=== PATIENT | female | born 1935 | race Caucasian/White ===

== ENCOUNTER → 2018-05-31 | Outpatient (CLI) | payer OTHER ==
[~2018-05-31] MED LIST: CALCIUM PO; CARDURA2 MG; CLA1000 MG PO; CO Q-10100 MG PO; DICLOFENAC SODI75 M1; FISH OIL 1,0001 EAC5 PO; FUROSEMIDE 40 M40 M1 PO; GARLIC OIL1 EACH PO; I-CAPS AREDS S1 EACH PO; LECITHIN PO; LEVOTHYROXINE PO; LISINOPRIL-HCT1 EAC1 PO; LOVASTAT10; LOVENOX SUBQ; MULTIVITAMINS PO; NEURONTIN600 MG; NORCO 5-325 TA1 EACH PO; NORCO 7.5-3251 EACH PO; PERCOCET 5-3251 EACH PO; STOOL SOFTENER1 EAC2 PO; SYNTHROID75 MCG PO; TOPROL XL25 MG PO; VITAMIN C PO; VITAMINC500 PO; ZANTAC 150MG T150 M1
== END ==
LOC: M.RAD 12:26
DX: I11.9 Hypertensive heart disease without heart failure (principal); I70.0 Atherosclerosis of aorta

== ENCOUNTER → 2018-11-29 | Outpatient (CLI) | payer OTHER | LOC: M.RAD 11:02 | DX: I26.99 Other pulmonary embolism without acute cor pulmonale (principal); I51.7 Cardiomegaly; R91.8 Other nonspecific abnormal finding of lung field ==

== ENCOUNTER → 2018-12-13 | Outpatient (CLI) | payer OTHER | LOC: M.RAD 11:43 | DX: Z01.89 Encounter for other specified special examinations (principal); I51.7 Cardiomegaly ==

== ENCOUNTER → 2019-02-04 | Outpatient (CLI) | payer OTHER | LOC: M.RAD 10:51 | DX: R13.12 Dysphagia, oropharyngeal phase (principal) ==

== ENCOUNTER → 2019-05-02 | Outpatient (CLI) | payer MEDICARE | LOC: M.RAD 16:15 | DX: R05 Cough (principal); I51.7 Cardiomegaly; M47.814 Spondylosis without myelopathy or radiculopathy, thoracic region ==

== ENCOUNTER 2019-08-07 14:32 | Inpatient (IN) | payer MEDICARE ==
[~2019-08-07] VITALS: Ht 160 cm; Wt 109.5 kg
[~2019-08-07 14:32] MED LIST changes: -CARDURA2 MG; +CARDURA2 MG PO; -GARLIC OIL1 EACH PO; +GARLIC OIL1000 MG PO; -NEURONTIN600 MG; +NEURONTIN600 MG PO
[2019-08-07 14:38] VITALS: BP 171/87
[2019-08-07] MEDS ORDERED: FAMOTIDINE 20 M20 MG PO (14:45)
[2019-08-07] MEDS ORDERED: LIPITOR40 MG PO (14:46)
[2019-08-07] MEDS ORDERED: METFORMIN HCL500 M3 PO ×2 (14:48)
[2019-08-07] MEDS ORDERED: ASA81BEC PO (14:48)
[2019-08-07] MEDS ORDERED: HYDROCHLOROTHIA25 M2 PO (14:50)
[2019-08-07] MEDS ORDERED: MICARDIS 20MG T20 M1 PO (14:50)
[2019-08-07] MEDS ORDERED: VITAMIN C1000 MG PO (14:52)
[2019-08-07] MEDS ORDERED: TURMERIC500 M2 PO (14:52)
[2019-08-07 15:08] LABS: ABSOLUTE EOSINOPHILS 0.4 thou/uL (0.0-0.7); ABSOLUTE LYMPHOCYTES 1.6 thou/uL (0.8-5.3); ABSOLUTE MONOCYTES 0.6 thou/uL (0.0-1.2); ABSOLUTE NEUTROPHILS 4.3 thou/uL (1.6-8.1); BASOPHILS 0.7 %; EOSINOPHILS 5.7 %; HEMATOCRIT 36.6 % (37.0-47.0); HEMOGLOBIN 12.6 gm/dL (12.0-15.0); LYMPHOCYTES 23.3 %; MCH 33.8 pg (26.0-34.0); MCHC 34.3 g/dL (28.0-37.0); MCV 98.6 fL (80.0-100.0); MONOCYTES 8.4 %; MPV 8.5 fl. (7.2-11.1); NUCLEATED RBCS 0 /100WBC; PLATELET COUNT* 193 thou/uL (150-400); POLYS 61.9 %; RBC 3.72 mil/uL (4.20-5.00); RDW-CV 13.2 % (10.5-14.5)
[2019-08-07 15:09] LABS: BE 4.5 mmol/L (-2 to +3); pH 7.378 (7.340-7.450)
[2019-08-07 15:12] LABS: PCO2 53.5 mmHg (35.0-45.0)
[2019-08-07 15:16] LABS: CALCIUM 9.1 mg/dL (8.5-10.1); CREATININE 1.2 mg/dL (0.6-1.3); POTASSIUM 4.8 mmol/L (3.5-5.1)
[2019-08-07 15:20] LABS: APTT 26.3 Seconds (25.0-31.3); PROTIME 10.4 Seconds (9.20-11.50)
[2019-08-07 15:27] LABS: ALBUMIN 3.3 g/dL (3.4-5.0); TOTAL BILIRUBIN 0.2 mg/dL (<0.1-1.0); TOTAL PROTEIN 8.2 g/dL (6.4-8.2)
[2019-08-07 17:11] VITALS: BP 179/86
[2019-08-07 20:30] VITALS: BP 179/88
[2019-08-07 23:30] VITALS: BP 143/76
[2019-08-08 04:16] VITALS: BP 109/60
[2019-08-08 05:17] LABS: ABSOLUTE BASOPHILS 0.1 thou/uL (0.0-0.2); ABSOLUTE LYMPHOCYTES 1.1 thou/uL (0.8-5.3); ABSOLUTE MONOCYTES 0.3 thou/uL (0.0-1.2); BASOPHILS 1.2 %; EOSINOPHILS 0.1 %; HEMATOCRIT 37.6 % (37.0-47.0); HEMOGLOBIN 12.7 gm/dL (12.0-15.0); LYMPHOCYTES 11.7 %; MCH 33.1 pg (26.0-34.0); MCHC 33.6 g/dL (28.0-37.0); MCV 98.5 fL (80.0-100.0); MONOCYTES 3.4 %; MPV 9.4 fl. (7.2-11.1); NUCLEATED RBCS 0 /100WBC; PLATELET COUNT* 214 thou/uL (150-400); POLYS 83.6 %; RBC 3.82 mil/uL (4.20-5.00); WBC 9.6 thou/uL (4.0-11.0)
[2019-08-08 05:27] LABS: CALCIUM 9.1 mg/dL (8.5-10.1); CREATININE 1.3 mg/dL (0.6-1.3); POTASSIUM 4.4 mmol/L (3.5-5.1)
--- NOTE | 2019-08-08 08:26 | EKG ---
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: TDS : 1935 Requested By: Francisco Mar Order Number: [id number] MD: Diogenes Green Measurements Intervals [place] Rate: 85 P: -12 [place]: 170 QRS: -44 QRSD: 97 T: 14 QT: 399 QTc: 475 Interpretive Statements Sinus rhythm Left anterior fascicular block low voltage, precordial leads Possible anteroseptal infarct, old Compared to ECG 01/15/2012 07:46:21 Low QRS voltage now present Myocardial infarct finding still present Electronically Signed On 08-08-2019 8:24:21 CDT by Diogenes Green [email or web address] <ELECTRONICALLY SIGNED> By: Diogenes Green MD, [facility] 08/08/19 0824 1509 1509 Diogenes Green MD, [facility] /EPI
[2019-08-08 08:30] VITALS: BP 120/57
--- NOTE | 2019-08-08 14:21 | 2DMMODE ---
[place] [address] 2 D/M-MODE ECHOCARDIOGRAM Name: JULI MORGAN Angela Room: [address] IN .#: [id number] Admission: 08/07/19 Attend Phys: Seth Barron, Discharge: Date of : 37 Date of Service: 08/08/19 1418 Report #: [id number] THIS REPORT FOR: cc: Carol Goodman MD, Katrina MD Liston, Michael J. MD [facility] ~ APPROVED REPORT Study performed: 08/08/2019 12:03:07 EXAM: Comprehensive 2D, Doppler, and color-flow Echocardiogram Patient Location: In-Patient BSA: 2.04 HR: 85 bpm BP: 109/60 mmHg Other Information Study Quality: Technically Limited Technically limited study due to body habitus, inability to position patient. Indications Congestive Heart Failure Dyspnea 2D Dimensions IVSd: 12.05 (7-11mm) LVOT Diam: 18.71 (18-24mm) LVDd: 31.68 mm PWd: 10.31 (7-11mm) Ascending Ao: 41.47 (22-36mm) LVDs: 21.48 (25-40mm) Aortic Root: 30.73 mm Volumes Left Atrial Volume (Systole) LA ESV Index: 26.50 mL/m2 Aortic Valve AoV Peak Faheem.: 1.64 m/s AO Peak Gr.: 10.73 mmHg LVOT Max P.82 mmHg AO Mean Gr.: 5.65 mmHg LVOT Mean P.57 mmHg LVOT Max V: 0.84 m/s AO V2 VTI: 26.72 cm LVOT Mean V: 0.58 m/s ANUEL (VTI): 1.65 cm2 LVOT V1 VTI: 16.01 [place] [address] 2 D/M-MODE ECHOCARDIOGRAM Name: JULI MORGAN Room: [address] IN [facility]#: [id number] Admission: 08/07/19 Attend Phys: Seth Barron, Discharge: Date of : 37 Date of Service: 08/08/19 1418 Report #: [id number] Mitral Valve E/A Ratio: 0.55 MV Decel. Time: 234.13 ms MV E Max Faheem.: 0.54 m/s MV PHT: 67.90 ms MVA (PHT): 3.24 cm2 TDI E/Lateral E': 7.71 E/Medial E': 4.50 Medial E' Faheem.: 0.12 m/s Lateral E' Faheem.: 0.07 m/s Pulmonary Valve PV Peak Faheem.: 1.06 m/s PV Peak Gr.: 4.48 mmHg Tricuspid Valve RAP Estimate: 5.00 mmHg TR Peak Gr.: 50.95 mmHg RVSP: 55.95 mmHg PA Pressure: 55.95 mmHg Left Ventricle The left ventricle is normal size. There is normal LV segmental wall motion. There is normal left ventricular wall thickness. Left ventricular systolic function is normal. LVEF is 65-70%. Grade I - abnormal relaxation pattern. Right Ventricle The right ventricle is normal size. The right ventricular systolic function is normal. Atria The left atrium size is normal. The right atrium size is normal. Aortic Valve The aortic valve is normal in structure. No aortic regurgitation is present. There is no aortic valvular stenosis. Mitral Valve The mitral valve is normal in structure. There is no mitral valve regurgitation noted. No evidence of mitral valve stenosis. Tricuspid Valve The tricuspid valve is normal in structure. Trace tricuspid regurgitation. The RVSP is 55 [place] [address] 2 D/M-MODE ECHOCARDIOGRAM Name: JULI MORGAN Angela Room: [address]#: [id number] Admission: 08/07/19 Attend Phys: Seth Barron, Discharge: Date of : 37 Date of Service: 08/08/19 1418 Report #: [id number] Pulmonic Valve The pulmonary valve is normal in structure. There is no pulmonic valvular regurgitation. Great Vessels The aortic root is normal in size. The ascending aorta is mildly dilated. (4.1 cm). IVC is normal in size and collapses >50% with inspiration. Pericardium There is no pericardial effusion. <Conclusion> The left ventricle is normal size. There is normal left ventricular wall thickness. Left ventricular systolic function is normal. LVEF is 65-70%. Grade I - abnormal relaxation pattern. Trace tricuspid regurgitation. The RVSP is 55 mmHg. IVC is normal in size and collapses >50% with inspiration. The ascending aorta is mildly dilated. (4.1 cm). <ELECTRONICALLY SIGNED> By: Diogenes Green MD, FACC 08/08/19 1418 1418 1418 Diogenes Green MD, FACC /INF
[2019-08-08 20:30] VITALS: BP 145/61
[2019-08-09 00:29] VITALS: BP 142/65
[2019-08-09 04:30] VITALS: BP 123/60
[2019-08-09 04:31] LABS: ABSOLUTE BASOPHILS 0.1 thou/uL (0.0-0.2); ABSOLUTE EOSINOPHILS 0.4 thou/uL (0.0-0.7); ABSOLUTE LYMPHOCYTES 1.9 thou/uL (0.8-5.3); ABSOLUTE MONOCYTES 0.7 thou/uL (0.0-1.2); ABSOLUTE NEUTROPHILS 5.3 thou/uL (1.6-8.1); BASOPHILS 1.3 %; EOSINOPHILS 4.2 %; HEMATOCRIT 35.9 % (37.0-47.0); HEMOGLOBIN 12.3 gm/dL (12.0-15.0); LYMPHOCYTES 22.9 %; MCH 34.1 pg (26.0-34.0); MCHC 34.2 g/dL (28.0-37.0); MCV 99.7 fL (80.0-100.0); MONOCYTES 7.9 %; MPV 9.5 fl. (7.2-11.1); NUCLEATED RBCS 0 /100WBC; PLATELET COUNT* 200 thou/uL (150-400); POLYS 63.7 %; RDW-CV 13.4 % (10.5-14.5); WBC 8.4 thou/uL (4.0-11.0)
[2019-08-09 04:36] LABS: CALCIUM 8.5 mg/dL (8.5-10.1); CREATININE 1.3 mg/dL (0.6-1.3); POTASSIUM 4.3 mmol/L (3.5-5.1)
[2019-08-09 08:00] VITALS: BP 126/58
[2019-08-09 12:28] VITALS: BP 120/49
[2019-08-09 16:08] VITALS: BP 123/64
[2019-08-09 20:00] VITALS: BP 140/75
[2019-08-10 00:07] VITALS: BP 148/77
[2019-08-10 04:41] VITALS: BP 104/71
[2019-08-10 05:04] LABS: ABSOLUTE EOSINOPHILS 0.1 thou/uL (0.0-0.7); ABSOLUTE MONOCYTES 0.4 thou/uL (0.0-1.2); ABSOLUTE NEUTROPHILS 5.8 thou/uL (1.6-8.1); BASOPHILS 0.6 %; EOSINOPHILS 0.7 %; HEMATOCRIT 33.6 % (37.0-47.0); HEMOGLOBIN 11.3 gm/dL (12.0-15.0); LYMPHOCYTES 13.7 %; MCH 33.5 pg (26.0-34.0); MCHC 33.5 g/dL (28.0-37.0); MCV 99.8 fL (80.0-100.0); MONOCYTES 5.1 %; MPV 8.7 fl. (7.2-11.1); NUCLEATED RBCS 0 /100WBC; PLATELET COUNT* 202 thou/uL (150-400); POLYS 79.9 %; RBC 3.36 mil/uL (4.20-5.00); RDW-CV 12.8 % (10.5-14.5); WBC 7.2 thou/uL (4.0-11.0)
[2019-08-10 05:13] LABS: CALCIUM 8.3 mg/dL (8.5-10.1); POTASSIUM 4.5 mmol/L (3.5-5.1)
[2019-08-10 08:30] VITALS: BP 103/61
[2019-08-10 12:00] VITALS: BP 140/69
[2019-08-10 16:11] VITALS: BP 119/51
[2019-08-10 20:00] VITALS: BP 134/51
[2019-08-11 00:50] VITALS: BP 152/74
[2019-08-11 04:05] VITALS: BP 138/63
[2019-08-11 04:46] LABS: POTASSIUM 4.2 mmol/L (3.5-5.1)
[2019-08-11 04:49] LABS: ABSOLUTE BASOPHILS 0.1 thou/uL (0.0-0.2); ABSOLUTE EOSINOPHILS 0.2 thou/uL (0.0-0.7); ABSOLUTE LYMPHOCYTES 1.6 thou/uL (0.8-5.3); ABSOLUTE MONOCYTES 0.7 thou/uL (0.0-1.2); BASOPHILS 0.9 %; EOSINOPHILS 2.4 %; HEMOGLOBIN 11.1 gm/dL (12.0-15.0); MCH 33.5 pg (26.0-34.0); MCHC 33.5 g/dL (28.0-37.0); MCV 100.2 fL (80.0-100.0); MONOCYTES 8.1 %; MPV 9.3 fl. (7.2-11.1); NUCLEATED RBCS 0 /100WBC; PLATELET COUNT* 184 thou/uL (150-400); POLYS 69.6 %; RDW-CV 13.3 % (10.5-14.5); WBC 8.6 thou/uL (4.0-11.0)
[2019-08-11 12:00] VITALS: BP 156/80
[2019-08-11] MEDS ORDERED: AUGMENTIN 875-1 EACH PO (15:10)
[2019-08-11] MEDS ORDERED: PROTONIX40 M2 PO (15:11)
[2019-08-11] MEDS ORDERED: VENTOLIN HFA INH8 GM INH (15:14)
[2019-08-11] MEDS ORDERED: PREDNISONE 10 M10 M1 PO (15:22)
[2019-08-11 15:24] VITALS: BP 156/80
[2019-08-11 16:00] VITALS: BP 171/78
--- NOTE | 2019-08-12 17:32 | CON ---
[address] [address] CONSULTATION Name: EDDIEJULI L Room: [address] IN .R.#: [id number] Admission: 08/07/19 Attend Phys: Seth Barron MD Discharge: 08/11/19 Date of : 37 Report #: [id number] THIS REPORT FOR: //name// cc: Carol Goodman MD, Katrina MD ~ THIS REPORT FOR: //name// CC: Seth Goodman DATE OF SERVICE: 08/08/2019 REQUESTING PHYSICIAN: Consult has been requested by Dr. Seth Barron. INDICATION FOR CONSULTATION: Shortness of breath and pulmonary infiltrates. HISTORY OF PRESENT ILLNESS: The patient is an 84-year-old female. She is not aware of any long-term pulmonary disease; however, she does follow with a administration specialist and as noted below, she has had an arterial blood gas performed on admission which is consistent with chronic hypercarbic respiratory failure. She does have morbid obesity as well as a body mass index of 42. The patient reports being a lifetime nonsmoker. She is not on supplemental oxygen or positive airway pressure device at home. The patient is now admitted yesterday. The patient is reported to have had an increase in cough over the last several days. The patient also reported increasing shortness of breath. The patient was seen by her administration specialist and then sent to the Emergency Room. Initially O2 saturations as low as 77% were recorded. She does have an increase in cough, mucus production is minimal. She does not have chest pain. She does not report upper respiratory complaints. She does not have increase in swelling of lower extremities. There is no calf pain. She has issues with heartburn; however, she does not report any change in this symptom recently. The patient has sleep complaints, which are essentially pathognomonic of obstructive sleep apnea when seen in correlation with her clinical history. The patient does have a history of marked daytime sleepiness/hypersomnia and does have disturbed sleep at night as well. REVIEW OF SYSTEMS: I asked the patient 12 other questions for review of systems. The patient is a full review of systems is negative except as mentioned above. PAST MEDICAL HISTORY: Morbid obesity, gastroesophageal reflux disease, left vocal cord paralysis, prediabetes, hypothyroidism, neuropathy, hypertension, foot surgery, hernia surgery, 3 C-sections, hysterectomy, [place] [address] CONSULTATION Name: JULI MORGAN Room: [address]#: [id number] Admission: 08/07/19 Attend Phys: Seth Barron MD Discharge: 08/11/19 Date of : 37 Report #: [id number] SOCIAL HISTORY: Lifetime nonsmoker. No known history of heavy alcohol use or illegal drug use. CURRENT MEDICATIONS: List, in [place], reviewed. HOME MEDICATIONS: List, also in [place], reviewed. FAMILY HISTORY: There is no pertinent family history. ALLERGIES: SHE IS REPORTED TO HAVE HAD EITHER AN ALLERGY OR ADVERSE REACTION TO IBUPROFEN. PHYSICAL EXAMINATION: GENERAL: She is alert, awake and oriented, does not appear to be in any distress at this time. VITAL SIGNS: Has a pulse of 86 and a blood pressure of 120/57. She is saturating 97-99%. She is on 4 liters nasal cannula. She is afebrile with a temperature of 36.8, body mass index is elevated to 42. HEENT: Head is normocephalic and atraumatic. She obviously has a narrow airway. NECK: Does not show raised JVP, asymmetry, mass or lymph nodes. CHEST: Symmetrical expansion on inspection and palpation. On auscultation, chest is essentially clear. HEART: Regular. There is no murmur. ABDOMEN: Soft and nontender. EXTREMITIES: Lower extremities show trace edema only. There is no calf tenderness. SKIN: Dry and intact. NEUROLOGICAL: Moves all extremities bilaterally equally and spontaneously with no focal deficit identified. LABORATORY DATA: The patient's CT chest is reviewed. It is consistent with bilateral infiltrates, consistent with community-acquired pneumonia. A component of mild increase in pulmonary vascular congestion cannot be ruled out. There are previous chest x-rays available as well as. I reviewed the new chest x-ray with the previous chest x-rays. There is some scarring noted in the previous chest x-rays as well. Most of the findings; however, now appear to be new. The patient's CBC as well as chemistries are in [facility] and these are reviewed. Elevation in BUN as well as mild elevation in creatinine are noted. The patient was screened for COVID-19 and this is negative. The patient does have chronic hypercarbic respiratory failure per her arterial blood gas in addition to a clinical acute component. The patient did have an echocardiogram performed as well. This shows a left ventricular ejection fraction of 65-70%. The patient's pulmonary artery systolic pressure is elevated to 55. The patient's D-dimer is noted to be mildly elevated to 0.67. Note that the CT [address] [address] CONSULTATION Name: JULI MORGAN Room: [address]#: [id number] Admission: 08/07/19 Attend Phys: Seth Barron MD Discharge: 08/11/19 Date of : 37 Report #: [id number] chest as referenced above is without IV dye. There is a previous video swallow in the records which shows penetration, but no aspiration. The patient's creatinine yesterday was 1.2, previous baseline creatinine from several years ago was 1.1. ASSESSMENT AND PLAN: 1. [id number] hypercarbic respiratory failure. I reviewed the patient's arterial blood gas in addition to an acute component, this arterial blood gases consistent with longstanding chronic hypercarbic respiratory failure. This is despite the fact that the patient does not know of a diagnosis of long-term pulmonary disease in the past. The patient obviously has obstructive sleep apnea in the absence of any other etiology known for chronic hypercarbic respiratory failure. I suspect that the etiology is obesity hypoventilation syndrome in addition to obstructive sleep apnea. The optimal therapy for this will be either with a BiPAP or Trilogy device while asleep in addition to weight loss. I would go ahead and order a BiPAP while asleep while the patient is here and will then assess for her tolerance to BiPAP. 2. Pulmonary infiltrates. Certainly a component of fluid overload can also lead to this picture. At first glance, it however appears to be more likely to me that the findings noted on the CT chest are due to pulmonary infiltrates. Therefore, I agree with broad-spectrum antibiotics as are currently prescribed. We will go ahead and do a urine for legionella antigen as well as pneumococcal antigen. If the patient is able to provide a sputum, we will check a sputum as well. The patient is noted to have tested negative for COVID-19. 4. Obstructive sleep apnea with obesity hypoventilation syndrome. See discussion above. As above, the patient on clinical grounds obviously appears to have these diagnoses. She obviously will benefit from further workup. 5. Pulmonary hypertension. The patient's echocardiogram does show a pulmonary artery systolic pressure elevated to 55. The patient's D-dimer is also mildly elevated. Therefore, I cannot completely rule out the possibility of acute pulmonary emboli. At this time; however, given the patient IV dye, would have a considerable risk of causing nephrotoxicity and a V/Q scan for this patient is likely to be nondiagnostic. Considering that the patient does not appear to be in any respiratory distress, I therefore decided to hold off on such investigations. In fact my impression is that acute pulmonary emboli are likely and the patient's underlying obstructive sleep apnea with obesity hypoventilation syndrome are more likely to explain her pulmonary hypertension. 6. Mild fluid overload. She does have trace edema. As discussed above, a component of pulmonary vascular congestion could be present on the CT, but again the patient is not in any respiratory distress and creatinine is mildly elevated and, therefore, it was decided not to administer any more Lasix. The patient did receive 2 doses of Lasix yesterday. We will reassess with followup labs as well as a chest x-ray tomorrow morning. 7. Unilateral vocal cord dysfunction. The patient's previous video swallows showing penetration, but no aspiration as discussed above. [place] [address] CONSULTATION Name: EDDIEJULI Miller Room: [address]#: [id number] Admission: 08/07/19 Attend Phys: Seth Barron MD Discharge: 08/11/19 Date of : 37 Report #: [id number] 8. Gastroesophageal reflux disease. She is on Protonix. 9. Deep vein thrombosis prophylaxis. The patient is on Lovenox. 10. Morbid obesity. Weight loss is strongly recommended. <ELECTRONICALLY SIGNED> By: Loi Cifuentes MD 08/12/19 1732 1516 [id number] Cifuentes MD /nt
== END 2019-08-11 17:12 | disposition home health service (06) | DRG 177 ==
LOC: M.ERS 14:32 → M.2W 16:30 → M.TBA-ER 16:30 → M.ORTHSURG 16:30 → M.2W 08-08 19:42
PROVIDERS: Family Medicine; ADMIT Internal Medicine; ATTEND Internal Medicine
PROC: 5A09357 Assistance with Respiratory Ventilation, Less than 24 Consecutive Hours, Continuous Positive Airway Pressure (ICD-10-PCS; principal; 2019-08-09)
PROC: 5A09357 Assistance with Respiratory Ventilation, Less than 24 Consecutive Hours, Continuous Positive Airway Pressure (ICD-10-PCS; 2019-08-10)
PROC: 5A09357 Assistance with Respiratory Ventilation, Less than 24 Consecutive Hours, Continuous Positive Airway Pressure (ICD-10-PCS; 2019-08-11)
DX: J69.0 Pneumonitis due to inhalation of food and vomit (principal); J96.22 Acute and chronic respiratory failure with hypercapnia; J96.21 Acute and chronic respiratory failure with hypoxia; E66.2 Morbid (severe) obesity with alveolar hypoventilation; Z68.41 Body mass index [BMI] 40.0-44.9, adult; G62.9 Polyneuropathy, unspecified; M19.90 Unspecified osteoarthritis, unspecified site; E03.9 Hypothyroidism, unspecified; I27.20 Pulmonary hypertension, unspecified; I11.0 Hypertensive heart disease with heart failure; E87.70 Fluid overload, unspecified; I50.9 Heart failure, unspecified; R73.03 Prediabetes; K21.0 Gastro-esophageal reflux disease with esophagitis; Z20.828 Contact with and (suspected) exposure to other viral communicable diseases; Z79.84 Long term (current) use of oral hypoglycemic drugs; Z79.82 Long term (current) use of aspirin; Z98.891 History of uterine scar from previous surgery; Z90.49 Acquired absence of other specified parts of digestive tract; Z79.899 Other long term (current) drug therapy; Z88.8 Allergy status to other drugs, medicaments and biological substances